=== PATIENT | female | born 1975 | race Caucasian/White ===

== ENCOUNTER 2025-07-25 14:22 | Emergency (ER) | payer OTHER, SELFPAY ==
[2025-07-25 14:27] VITALS: BP 116/70
[2025-07-25 14:47] LABS: Hematocrit 36.7 % (37.0-47.0); Hemoglobin 11.8 g/dL (12.0-16.0); Mean Corp Hgb Conc. 32.2 g/dL (33.0-37.0); Mean Corpuscular Volume 85.5 fL (81.0-99.0); Nucleated Red Blood Cells % 0 %; Platelet Count 296 10^3/uL (130-400); Red Cell Dist. Width 12.7 % (11.5-14.5)
--- NOTE | 2025-07-25 15:04 | ED.GENMED ---
History of Present Illness
General
Chief Complaint: Chest Pain
Source: patient and family
Time Seen by Provider: 07/25/25 14:55
History of Present Illness
History of Present Illness:
50-year-old female presents emergency department with report of URI-like symptoms last week which eventually went away. However, the dry cough that she noticed then persists. She then noticed discomfort in her chest, waxes and wanes in intensity
but is always present, in the sternal area rating up to the throat. She denies change with position or relationship to eating. She does have a history of reflux and wonders if this is related to this. She went to an urgent care on , and
they gave her medication for reflux which helped her symptoms, but they also EKG and recommended outpatient follow-up concerning. She started to get worried which prompted her visit here. Her symptoms have not changed/gotten worse. She does feel
sometimes like she cannot get all the oxygen in. She denies fever, chills, trouble swallowing, sore throat, back pain, neck pain, headache, dizziness, leg swelling.
Past History
Past History
ED Past Medical History: GERD
ED Past Surgical History: Other (Dental implants)
Social History
Tobacco: Non-smoker
Alcohol: None
Drug: None
Living: alone
Employment: Employed
Family History
Family History: Other (Mother from a urinary tract infection)
Phy Exam
Physical Exam
Physical Exam:
GENERAL: Alert , in no apparent distress
EYE: pupils equal and reactive
NECK: Supple, no significant adenopathy.
ENT: o/p clr, mmm.
CARDIAC: Regular rate and rhythm .
LUNGS: Clear breath sounds bilaterally, no acute respiratory distress, no wheezes/rales/rhonchi
ABDOMEN: Soft, without focal tenderness, no r/g, no cvat
NEUROLOGICAL: Alert and oriented, no focal neuro deficits
SKIN: Warm and dry, skin intact.
MUSCULOSKELETAL: No edema, well perfused.
PSYCH: Normal and appropriate interaction.
Scores
Heart Score for Chest Pain Patients
STEMI patient?: Not applicable
Course
Orders/Labs/Results
Orders:
Orders
07/25/25 14:28
Electrocardiogram (*1) Urgent
Reason for Study: Chest Pain
EKG- Treatment ONCE
07/25/25 14:41
CMP [Comprehensive Metabolic Panel] Urgent
Complete Blood Count/With Diff Urgent
Troponin I Urgent
Abnormal Lab Results
07/25/25
14:41
Hgb 11.8 L g/dL
(12.0-16.0)
Hct 36.7 L %
(37.0-47.0)
MCHC 32.2 L g/dL
(33.0-37.0)
Absolute Monos (auto) 0.7 H 10^3/uL
(0.1-0.6)
07/25/25 14:41
07/25/25 14:41
Vital Signs
Initial and Last Documented VS:
Initial Vital Signs
Temp Pulse Resp BP Pulse Ox
98.6 F 76 18 116/70 99
07/25/25 14:27 07/25/25 14:27 07/25/25 14:27 07/25/25 14:27 07/25/25 14:27
Last Documented Vital Signs
Temp Pulse Resp BP Pulse Ox
98.6 F 76 18 116/70 99
07/25/25 14:27 07/25/25 14:27 07/25/25 14:27 07/25/25 14:27 07/25/25 15:07
*Pulse Oximetry
SaO2: 99
Oxygen Mode of Delivery: Room air
Patient hypoxic: no
*Critical Care Note
Total Time (30-74mins, 75-104mins- exclusive of procedures): Not Applicable
Update Note
Update Note:
Patient presents to the Emergency Department with
Number and Complexity of Problems Addressed at the Encounter
� Chronic conditions affecting care:
� Acute Exacerbation and/or Progression of Chronic Illness:
� Differential Diagnosis includes:
Amount and/or Complexity of Data to be Reviewed and Analyzed
� I performed an independent evaluation of and my interpretation is:
EKG: Read by me, normal sinus rhythm, normal rate, normal axis, acute ischemia
CT:
Xrays:
Laboratory Studies:
Other:
� Review of other/old records reveals:
� Clinical information was obtained by an independent historian:
� Prescriptions/Medications Considered but not given:
� Further testing considered but not performed:
Risk of Complications and/or Morbidity or Mortality of Patient Management
� Social determinants of health affecting care:
� Discussion with other providers (PCP, Hospitalists, Consultants, etc):
� Escalation of care including admission/observation vs risk of discharge considered: 3:14 PM 50-year-old female with chest discomfort that has been persistent for several days. Strongly suspect reflux related. Highly doubt PE,
not pleuritic, no risk factors identified, PERC negative. Highly doubt dissection based on history physical lack of risk factors etc. Will check troponin x 1 if unremarkable patient will be discharged with instructions to continue with her
scheduled cardiology follow-up and begin a PPI.
ED Attending Note
-
Portions of this chart may have been created with voice recognition software.� Occasional wrong word or��sound alike� substitutions may have occurred due to the inherent limitations of voice recognition software.
Discharge Plan
Departure
Patient Disposition: Home (Routine Discharge)
Date of Disposition: 07/25/25
Time of Disposition: 15:23
Patient with high blood pressure during this ER visit?: No
Condition: Good
Discharge Problem:
Chest pain
Instructions: Chest Pain NON-[facility] Operations Superintendent Follow Up
Prescriptions:
No Action
acetaminophen [Tylenol Extra Strength] 500 MG tablet
500 mg PO Q4HPRN PRN (Reason: pain)
omeprazole magnesium [Prilosec OTC] 20 MG tablet,delayed release (DR/EC)
20 mg PO DAILY Qty: 20 0RF
pantoprazole [Protonix] 40 mg tablet,delayed release (DR/EC)
40 mg PO DAILY Qty: 30 0RF
pantoprazole 40 mg tablet,delayed release (DR/EC)
40 mg PO BID Qty: 60 1RF
sucralfate [Carafate] 1 gram tablet
1 g PO QID Qty: 60 0RF
Activity Restrictions/Additional Instructions:
PLEASE SEE THE SEED SERVICE ADVISOR SCHEDULED. IF YOU DEVELOP INCREASING NEW OR PERSISTENT PAIN, PERSISTENT TROUBLE BREATHING, ANY FEVER, SWELLING, TROUBLE SWALLOWING, ABDOMINAL PAIN, DIZZINESS, OR OTHER WORRISOME SIGNS, PLEASE RETURN TO THE ER
IMMEDIATELY!
Interventions
Interventions:
ED- Cardiac Assessment Last Done: 07/25/25 15:12
Discharge Date and Time
Print Language: URUGUAYAN
[2025-07-25 15:08] LABS: ALT (SGPT) 30 U/L (0-35); AST (SGOT) 29 U/L (14-36); Albumin 4.5 g/dl (3.5-5.0); Alkaline Phosphatase 61 U/L (38-126); Blood Urea Nitrogen 15 mg/dl (7-17); Calcium 9.4 mg/dl (8.4-10.2); Carbon Dioxide 29 mmol/L (22-30); Chloride 105 mmol/L (98-107); Glucose 98 mg/dl (70-99); Potassium 4.0 mmol/L (3.5-5.1); Sodium 138 mmol/L (135-145); Total Protein 6.9 g/dl (6.3-8.2); eGFR > 60.00
[2025-07-25 15:17] LABS: Troponin I < 0.012 ng/ml
== END 2025-07-25 15:49 | disposition home or self-care (01) ==
LOC: EMR 14:22
PROVIDERS: Emergency Medicine; EMERGENCY PHYSICIAN Emergency Medicine
DX: R07.89 Other chest pain (principal); K21.9 Gastro-esophageal reflux disease without esophagitis; Z63.4 Disappearance and death of family member
CPT/HCPCS: 99283; 80053; 84484; 85025; 93005